=== PATIENT | female | born 1955 | race Caucasian/White ===

== ENCOUNTER 2017-01-02 14:37 | Emergency (ER) | payer OTHER ==
[2017-01-02 14:53] VITALS: PULSE 81; RESP 16
--- NOTE | 2017-01-02 15:17 | EDPHY ---
H & P Stated Complaint: Generalized body pains, htn concerns Time Seen by Provider: 01/02/17 15:15 HPI/ROS: CHIEF COMPLAINT: Elevated blood pressure. HISTORY OF PRESENT ILLNESS: The patient is a 61 year old female who was seen at urgent care and sent here for elevated blood pressure and anxiety. For the past 2 days the patient has as if she is "coming down with something". She reports vague flu like symptoms including body aches, sore throat, and mild congestion. Today after coffee these symptoms flared. She took Claritin at 12pm today and her throat pain was alleviated. However, she felt increased anxiety about these symptoms and was seen at Urgent Care. While there, her blood pressure was elevated. The patient has known hypertension and has tried several antihypertensive medications but has encountered side effects and been unable to remain on a medication. She and her PCP, , have worked on her blood pressure for the past few years-- however, she has not seen Dr. Welch recently. Lately the patient has felt more stressed and anxious than usual. She uses several anti-stress modalities including yoga and massage. She retired from her work to decrease stress in her life. She sees a therapist regularly. REVIEW OF SYSTEMS: A ten point review of systems was performed and is negative with the exception of the items mentioned in the HPI. Ongoing back pain for the past year. Source: Patient Exam Limitations: No limitations - Personal History Current Tetanus/Diphtheria Vaccine: Yes Current Tetanus Diphtheria and Acellular Pertussis (TDAP): Yes Tetanus Vaccine Date: 01/2015 - Medical/Surgical History Hx Asthma: No Hx Chronic Respiratory Disease: No Hx Diabetes: No Hx Cardiac Disease: Yes Hx Renal Disease: No Hx Cirrhosis: No Hx Alcoholism: No Hx HIV/AIDS: No Hx Splenectomy or Spleen Trauma: No Other PMH: PMH-. Hypertension. Stenosing tenosynovitis in hands, currently in PT with Ramin Garner and sees Dr. Flower. PSH- ORAL SURGERY, BREAST BIOPSIES - Social History Smoking Status: Never smoked Alcohol Use: Occasionally Drug Use: None Additional Social History: Daughter at bedside. 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 - Physical Exam Exam: General Appearance: Alert. Vital signs reviewed. BP 208/97 at triage. Eyes: Pupils equal and round, no conjunctival injection, no discharge. Anicteric. ENT, Mouth: Mucous membranes are moist, no oropharyngeal erythema or edema. Neck: No lymphadenopathy, supple. No carotid bruits. Respiratory: Lungs are clear to auscultation; no wheezes, rales, or rhonchi. Cardiovascular: Regular rate and rhythm; no murmur, rub, or gallop. Gastrointestinal: Abdomen is soft and nontender, no masses or organomegaly, bowel sounds normal. Skin: Warm and dry, no rashes on exposed skin, normal color. Back: Nontender to palpation over the thoracolumbar spine. No CVAT. Extremities: No lower extremity edema, no calf tenderness or swelling. Neurological: Alert and oriented. Moving all four extremities easily and equally. Cranial nerves II through XII are examined and are intact (visual acuity not tested). Strength is 5 over 5 bilaterally with testing of all major motor groups. Sensation is intact to light touch over all 4 extremities. Finger-to- nose is performed accurately. Psychiatric: Anxious, slightly tearful. Constitutional: Initial Vital Signs Temperature (C) 36.7 C 01/02/17 14:50 Heart Rate 81 01/02/17 14:50 Respiratory Rate 16 01/02/17 14:50 Blood Pressure 208/97 H 01/02/17 14:50 O2 Sat (%) 97 01/02/17 14:50 O2 Delivery Mode Room Air Allergies/Adverse Reactions: aspirin Allergy (Verified 01/25/15 16:43) ibuprofen Allergy (Verified 01/25/15 16:43) Home Medications: Medication Instructions Recorded ACETAMINOPHEN 01/25/15 Claritin 01/25/15 LORazepam [Ativan] 0.5 mg PO Q8 PRN #6 tab 01/02/17 Medical Decision Making - Diagnostics EKG Interpretation: The 12 lead EKG was interpreted by myself. See hard copy and/or "tracemaster" electronic copy for interpretation: Normal sinus rhythm. ED Course/Re-evaluation: Plan for the patient includes EKG and labs. She received 1mg Ativan PO while lab work is pending. I do not find anything in the history of physical that raises concern for infection. She is also worried about a possible allergic reaction, but I do not think that this is the case. Labs appear normal. Troponin is negative. EKG without ischemic changes. 1740: She is feeling calmer but still quite focused on her recent physical ailments. BP has decreased--168/85. We discussed FU with Dr. Welch for further discussion of HTN treatment. I do not find evidence of stroke, [place], kidney disease. She understands that she has ongoing hypertension and is aware of the risks. I reevaluated the patient. I discussed findings. The patient agrees with plan for discharge home and FU. Differential Diagnosis: I considered a ddx of hypertension including but not limited to dietary factors , aging, sleep apnea, obesity (not a factor in this patient), sedentary lifestyle, drugs and/or alcohol, smoking (not a factor), hormonal disease (eg., Cushings), kidney disease. - Data Points Laboratory Results: Laboratory Results 01/02/17 15:45 01/02/17 15:45 Medications Given: Discontinued Medications Lorazepam (Ativan Injection) 1 mg IVP EDNOW ONE Stop: 01/02/17 15:47 Last Admin: 01/02/17 15:55 Dose: 1 mg Departure - Departure Disposition: Home, Routine, Self-Care Clinical Impression: Hypertension, Anxiety Condition: Good Instructions: Hypertension (ED), Anxiety (ED) Additional Instructions: Call Dr. Welch' office tomorrow to schedule a followup appointment. Use the ativan, o.5 mg, by letting it dissolve under your tongue. Use it if you are feeling anxious. As we discussed, this is not a tank terminal gauger answer but it might help you in the short term. Your blood pressure was high in the emergency department. Your final blood pressure was 168/85 (much improved). Please talk with Dr. Welch about this. Referrals: Ivon Welch MD [Primary Care Provider] - As per Instructions Prescriptions: LORazepam [Ativan] 0.5 mg PO Q8 PRN #6 tab PRN Reason: Anxiety Report Scribed for: Kellie Newell Report Scribed by: Mariama Hussein Date of Report: 01/02/17 Time of Report: 15:37 Physician Review and Approval Statement: 01/02/17 15:17 Portions of this note were transcribed by the medical technologist chemistry. I, Dr. Kellie Newell, personally performed the history, physical exam, and medical decision- making; and confirmed the accuracy of the information in the transcribed note.
[2017-01-02] MEDS ORDERED: LORazepam 2 MG/ML INJ IVP ONE (15:46)
[2017-01-02 16:00] LABS: % IMMATURE GRANULYOCYTES 0.2 % (0.0-1.1); ABSOLUTE IMMATURE GRANULOCYTES 0.01 10^3/uL (0.00-0.10); ADD DIFF? NO; ADD MORPH? NO; ADD SCAN? NO; ATYPICAL LYMPHOCYTE FLAG 0 (0-99); FRAGMENT RBC FLAG 0 (0-99); HEMATOCRIT 40.1 % (38.0-47.0); HEMOGLOBIN 14.1 g/dL (12.6-16.3); LEFT SHIFT FLG 0 (0-99); LIPEMIA HEMOLYSIS FLAG 90 (0-99); MEAN CELL HEMOGLOBIN 32.1 pg (27.9-34.1); MEAN CELL HEMOGLOBIN CONCENTR. 35.2 g/dL (32.4-36.7); MEAN CELL VOLUME 91.3 fL (81.5-99.8); PLATELET CLUMPS FLAG 0 (0-99); PLATELET COUNT 229 10^3/uL (150-400); RED BLOOD CELL COUNT 4.39 10^6/uL (4.18-5.33); RED CELL DISTRIBUTION WIDTH 12.4 % (11.5-15.2)
--- NOTE | 2017-01-02 16:01 | CPEKG ---
Heart Rate: 72 RR Interval: 833 QRSD Interval: 82 QT Interval: 392 QTC Interval: 430 QRS [place]: 78 T Wave [place]: 46 EKG Severity - ABNORMAL ECG - EKG Impression: sinus rhythm Electronically Signed By: Kellie Newell 02-Jan-2017 22:45:42
[2017-01-02 16:12] LABS: ANION GAP 13 mEq/L (8-16); CALCIUM 9.9 mg/dL (8.5-10.4); CARBON DIOXIDE 24 mEq/l (22-31); CHLORIDE 101 mEq/L (97-110); CREATININE 0.7 mg/dL (0.6-1.0); GLOMERULAR FILTRATION RATE > 60; GLUCOSE 126 mg/dL (70-100); POTASSIUM 3.9 mEq/L (3.5-5.2); SODIUM 138 mEq/L (134-144)
[2017-01-02 16:23] LABS: TROPONIN I < 0.012 ng/mL (0-0.034)
[2017-01-02 18:18] VITALS: BP 168/85; TEMP 97; O2SAT 96
== END 2017-01-02 18:19 | disposition home or self-care (01) ==
DX: F41.9 Anxiety disorder, unspecified (principal); I10 Essential (primary) hypertension
CPT/HCPCS: 96374

== ENCOUNTER 2017-01-09 18:15 | Emergency (ER) | payer OTHER ==
[2017-01-09 18:24] VITALS: TEMP 97.3
--- NOTE | 2017-01-09 18:40 | EDPHY ---
H & P Time Seen by Provider: 01/09/17 18:37 HPI/ROS: CHIEF COMPLAINT: Hypertension. HISTORY OF PRESENT ILLNESS: The patient is a 61-year-old female with a history of hypertension who presents with high blood pressure. She was seen in the emergency department 7 days ago for high blood pressure and was discharged with an Ativan prescription, which she has been taking to small effect for anxiety- related hypertension. She also started taking 2.5mg Lisinopril on the advice of her PCP 5 days ago. She developed a mild headache after starting the medication and is worried she is not tolerating the Lisinopril. She denies chest pain, shortness of breath, abdominal pain, or other complaints. REVIEW OF SYSTEMS: A complete 10-point review of systems was performed and is negative except for those items mentioned in the HPI. Past Medical/Surgical History: Hypertension, stenosing tenosynovitis in hands, oral surgery, breast biopsies. Social History: Nonsmoker. Smoking Status: Never smoked Physical Exam: General Appearance: Alert, anxious Eyes: Pupils equal and round, no conjunctival pallor or injection ENT, Mouth: Mucous membranes moist Neck: Normal inspection Respiratory: Lungs are clear to auscultation Cardiovascular: Regular rate and rhythm Gastrointestinal: Abdomen is soft and non-tender Neurological: A&O, nonfocal, normal gait Skin: Warm and dry, no rash Extremities: Nontender, no pedal edema Psychiatric: Anxious Constitutional: Initial Vital Signs Temperature (C) 36.3 C 01/09/17 18:22 Heart Rate 77 01/09/17 18:22 Respiratory Rate 17 01/09/17 18:22 Blood Pressure 194/92 H 01/09/17 18:22 O2 Sat (%) 98 01/09/17 18:22 O2 Delivery Mode Room Air Allergies/Adverse Reactions: aspirin Allergy (Verified 01/09/17 18:20) ibuprofen Allergy (Verified 01/09/17 18:20) Home Medications: Medication Instructions Recorded LORazepam [Ativan] 0.5 mg PO Q8 PRN #6 tab 01/02/17 Dexamethasone 01/09/17 Lisinopril 01/09/17 Medical Decision Making - Diagnostics EKG Interpretation: EKG interpreted by me reveals normal sinus rhythm, normal axis, normal intervals , ST and T segments normal. Borderline left axis deviation. Interpretation: otherwise normal EKG ED Course/Re-evaluation: Patient presents with elevated blood pressure and significant anxiety. An IV was established. She took 2.5mg PO Lisinopril. Blood pressure declined to 164/ 99. She will increase her lisinopril to 5 mg daily. Laboratory analysis reveals hyponatremia. Unclear this is related to lisinopril or another etiology. I feel that she is safe and stable for discharge home that she can with her primary care physician for recheck of her sodium and blood pressure. No evidence hypertensive emergency or urgency. Differential Diagnosis: Differential diagnosis includes does not limited to acute coronary syndrome, acute renal insufficiency, intracranial hemorrhage. - Data Points Laboratory Results: Laboratory Results 01/09/17 19:30 01/09/17 19:30 Medications Given: Discontinued Medications Lorazepam (Ativan Injection) 0.5 mg IVP EDNOW ONE Stop: 01/09/17 19:08 Last Admin: 01/09/17 19:34 Dose: 0.5 mg Departure - Departure Disposition: Home, Routine, Self-Care Clinical Impression: Hypertension, Hyponatremia Condition: Good Instructions: Hyponatremia (ED), Hypertension (ED) Additional Instructions: Follow up with Dr. Welch in her office in the next 1-2 days for reevaluation of your sodium levels, which were low in the ED today, and your blood pressure levels. Increase your Lisinopril dose to 5mg. Return to the emergency department if you experience any serious worsening of condition. Referrals: Ivon Welch MD [Primary Care Provider] - As per Instructions Report Scribed for: Rebecca Maxwell Report Scribed by: Gonsalo Issa Date of Report: 01/09/17 Time of Report: 18:38 Physician Review and Approval Statement: 01/09/17 18:39 Portions of this note were transcribed by a medical claims processor. I personally performed a history, physical exam, medical decision making, and confirmed accuracy of information the transcribed note.
[2017-01-09] MEDS ORDERED: LORazepam 2 MG/ML INJ IVP ONE (19:07)
[2017-01-09 19:35] VITALS: RESP 16
[2017-01-09 19:42] LABS: % IMMATURE GRANULYOCYTES 0.4 % (0.0-1.1); ABSOLUTE IMMATURE GRANULOCYTES 0.02 10^3/uL (0.00-0.10); ADD DIFF? NO; ADD MORPH? NO; ADD SCAN? NO; ATYPICAL LYMPHOCYTE FLAG 0 (0-99); FRAGMENT RBC FLAG 0 (0-99); HEMATOCRIT 38.2 % (38.0-47.0); HEMOGLOBIN 13.9 g/dL (12.6-16.3); LEFT SHIFT FLG 0 (0-99); LIPEMIA HEMOLYSIS FLAG 90 (0-99); MEAN CELL HEMOGLOBIN 32.7 pg (27.9-34.1); MEAN CELL HEMOGLOBIN CONCENTR. 36.4 g/dL (32.4-36.7); MEAN CELL VOLUME 89.9 fL (81.5-99.8); MEAN PLATELET VOLUME 10.3 fL (8.7-11.7); PLATELET CLUMPS FLAG 10 (0-99); PLATELET COUNT 213 10^3/uL (150-400); RED BLOOD CELL COUNT 4.25 10^6/uL (4.18-5.33); RED CELL DISTRIBUTION WIDTH 12.1 % (11.5-15.2)
--- NOTE | 2017-01-09 19:42 | CPEKG ---
Heart Rate: 70 RR Interval: 857 P-R Interval: 188 QRSD Interval: 84 QT Interval: 396 QTC Interval: 428 P [place]: 72 QRS [place]: -17 T Wave [place]: 21 EKG Severity - OTHERWISE NORMAL ECG - EKG Impression: SINUS RHYTHM EKG Impression: BORDERLINE LEFT AXIS DEVIATION Electronically Signed By: Rebecca Maxwell 09-Jan-2017 23:19:31
[2017-01-09 20:00] LABS: ANION GAP 8 mEq/L (8-16); CALCIUM 9.4 mg/dL (8.5-10.4); CARBON DIOXIDE 26 mEq/l (22-31); CHLORIDE 94 mEq/L (97-110); CREATININE 0.6 mg/dL (0.6-1.0); GLOMERULAR FILTRATION RATE > 60; GLUCOSE 120 mg/dL (70-100); POTASSIUM 3.9 mEq/L (3.5-5.2); SODIUM 128 mEq/L (134-144)
[2017-01-09 20:02] VITALS: BP 164/99; PULSE 75; O2SAT 97
== END 2017-01-09 20:45 | disposition home or self-care (01) ==
DX: I10 Essential (primary) hypertension (principal); E87.1 Hypo-osmolality and hyponatremia
CPT/HCPCS: 96374

== ENCOUNTER → 2017-08-01 | Outpatient (CLI) | payer OTHER | LOC: FIMAGING 08:11 | PROVIDERS: ATTEND Family Medicine | DX: Z12.31 Encounter for screening mammogram for malignant neoplasm of breast (principal) | CPT/HCPCS: G0202 ==

== ENCOUNTER → 2018-08-07 | Outpatient (CLI) | payer OTHER | LOC: FIMAGING 10:09 | PROVIDERS: ATTEND Obstetrics & Gynecology | DX: Z12.31 Encounter for screening mammogram for malignant neoplasm of breast (principal) ==